=== PATIENT | female | born 1970 | race Caucasian/White ===

== ENCOUNTER 2024-03-26 09:30 | Day surgery (SDC) | payer MEDICARE, MEDICAID ==
[~2024-03-26] VITALS: Ht 170.2 cm; Wt 157.4 kg
[~2024-03-26 09:30] MED LIST: LR 1,000 ML IV SCH; Ondansetron 4 MG/2 ML VIAL IV PRN
[2024-03-26] MEDS ORDERED: Lidocaine PF 2% (20 MG/ML) 5 ML VIAL ONE (10:34)
[2024-03-26 11:25] VITALS: BP 119/48; PULSE 87; TEMP 98
[2024-03-26 11:40] VITALS: BP 110/42; PULSE 79
[2024-03-26 11:55] VITALS: BP 104/86; PULSE 84
[2024-03-26] MEDS ORDERED: ELIQUIS 5MG PO (11:57)
[2024-03-26] MEDS ORDERED: LIPITOR 80MG80 MG PO (12:01)
--- NOTE | 2024-03-26 12:08 | NUR ---
1125: Pt to [facility] - ambulated with standby assist from cart to chair 1128: pt tolerating po intake well 1152: MD Jose in room with pt 1146: pt verbalizes understanding discharge materials 1207: pt escorted out via wheelchair to transport services vehicle
[2024-03-26] MEDS ORDERED: CALTRATE-600 W600 MG PO (12:10)
[2024-03-26] MEDS ORDERED: CYMBALTA 60MG60 MG PO (12:11)
[2024-03-26] MEDS ORDERED: AIMOVIG AU70 MG/1 ML INJ (12:16)
[2024-03-26] MEDS ORDERED: FERROUS SU325 MG/TAB PO (12:18)
[2024-03-26] MEDS ORDERED: FLONASEALLERGY IH (12:19)
[2024-03-26] MEDS ORDERED: LANTUS100 U/ML SQ (12:20)
[2024-03-26] MEDS ORDERED: LAMICTAL 100MG100 MG PO (12:21)
[2024-03-26] MEDS ORDERED: XYZAL5 MG PO (12:22)
[2024-03-26] MEDS ORDERED: ZESTRIL 20MG TA20 MG PO (12:23)
[2024-03-26] MEDS ORDERED: SINGULAIR 110 MG/TAB PO (12:24)
[2024-03-26] MEDS ORDERED: MULTI VITAMINS1 TAB PO (12:25)
[2024-03-26] MEDS ORDERED: PROTONIX 40MG T40 MG PO (12:26)
[2024-03-26] MEDS ORDERED: OZEMPIC1 MG/0.71 INJ (12:28)
[2024-03-26] MEDS ORDERED: ULTRAM 50MG TAB50 MG PO (12:29)
[2024-03-26] MEDS ORDERED: UBRELVY100 MG PO (12:30)
[2024-03-26] MEDS ORDERED: B COMPLEX #11 TA1 PO (12:31)
[2024-03-26] MEDS ORDERED: AMBIEN CR 12.12.5 MG (12:32)
[2024-03-26 12:42] VITALS: BP 136/91; PULSE 95; TEMP 97.1
== END 2024-03-26 12:00 | disposition home or self-care (01) ==
LOC: SDCO 09:30
DX: K29.30 Chronic superficial gastritis without bleeding (principal); K29.80 Duodenitis without bleeding; K21.9 Gastro-esophageal reflux disease without esophagitis; R19.7 Diarrhea, unspecified; Z86.73 Personal history of transient ischemic attack (TIA), and cerebral infarction without residual deficits
CPT/HCPCS: J2704; J7120